=== PATIENT | female | born 1985 ===

== ENCOUNTER 2018-10-21 18:56 | Inpatient (IN) ==
[2018-10-21] MEDS ORDERED: ONDANSETRON 4 MG/2 ML VIAL ONE (21:24)
[2018-10-21] MEDS ORDERED: MORPHINE 4 MG/1 ML VIAL ONE (21:25)
[2018-10-21] MEDS ORDERED: ONDANSETRON 4 MG/2 ML VIAL IV STA (21:25)
[2018-10-21] MEDS ORDERED: MORPHINE 4 MG/1 ML VIAL IV STA (21:26)
[2018-10-21] MEDS ORDERED: GLUCAGON 1 MG VIAL IM PRN (22:32)
[2018-10-21] MEDS ORDERED: DEXTROSE 50% 25 GM/50 ML VIAL IV PRN (22:32)
[2018-10-21] MEDS ORDERED: ENOXAPARIN 40 MG/0.4 ML SYRINGE SUBCUT SCH (23:00)
[2018-10-22] MEDS ORDERED: LORazepam 2 MG/1 ML VIAL IV PRN (00:25)
[2018-10-22] MEDS ORDERED: PNEUMOCOCCAL VACCINE (23 VALENT) 0.5 ML VIAL IM ONE (00:58)
[2018-10-22] MEDS: INSULIN REGULAR 100 UNIT/ML SUBCUT SCH ×5 (01:23→21:06)
[2018-10-22] MEDS ORDERED: VANCOMYCIN INJ 2,000 MG in SODIUM CHLORIDE 0.9% 500 ML IV ONE (02:00)
[2018-10-22] MEDS: MORPHINE 4 MG/1 ML VIAL IV PRN ×4 (02:55→18:06)
[2018-10-22 06:48] LABS: Basophils # 0.1 10*3/uL (0.0-0.2); Basophils % 0.6 % (0.0-0.8); Eosinophils # 0.4 10*3/uL (0.0-0.87); Eosinophils % 2.7 % (0.00-10.9); Hematocrit 39.6 VOL% (35.7-47.0); Hemoglobin 12.7 GM/DL (12.0-16.0); Immature Granulocytes % 0.7 %; Lymphocytes # 3.2 10*3/uL (1.4-4.0); Lymphocytes % 22.8 % (21.3-54.2); Mean Corpuscular HGB Conc 32.1 GM/DL (32-36); Mean Corpuscular Volume 86.7 FL (87-102); Monocytes % 8.7 % (1.7-12.7); Neutrophils % 64.5 % (38.7-73.9); Platelet Count 200 T/CUMM (130-400); Red Blood Count 4.57 MC/CUMM (3.8-5.5); Red Cell Distribution Width 13.7 % (9.3-17.3); White Blood Count 13.9 T/CUMM (4-12)
[2018-10-22 07:09] LABS: Calcium 8.3 MG/DL (8.5-10.1); Osmolality,Calculated 273.1 MOS/KG (273-304)
[2018-10-22] MEDS: FOLIC ACID 1 MG TABLET PO SCH (10:37)
[2018-10-22] MEDS: MULTIVITAMIN (CENTRUM) TABLET PO SCH (10:37)
[2018-10-22] MEDS: chlordiazePOXIDE 10 MG CAPSULE PO SCH ×2 (10:37→22:03)
[2018-10-22] MEDS: THIAMINE 100 MG TABLET PO SCH (10:37)
[2018-10-22] MEDS ORDERED: LIDOCAINE 1% 20 ML VIAL ONE (15:39)
[2018-10-22] MEDS ORDERED: PROPOFOL 200 MG/20 ML VIAL IV ONE (16:28)
[2018-10-22] MEDS ORDERED: ONDANSETRON 4 MG/2 ML VIAL ONE (16:29)
[2018-10-22] MEDS ORDERED: fentaNYL 100 MCG/2 ML VIAL ONE (16:29)
[2018-10-22] MEDS ORDERED: MIDAZOLAM 2 MG/2 ML VIAL ONE (16:29)
[2018-10-22] MEDS ORDERED: SEVOFLURANE 1 UNIT/15 MINUTE INH ONE (16:29)
[2018-10-22] MEDS ORDERED: LACTATED RINGERS 1,000 ML IV ONE (16:29)
[2018-10-22] MEDS ORDERED: POTASSIUM CHLORIDE 20 MEQ TABLET PO PRN (16:36)
[2018-10-22] MEDS: VANCOMYCIN INJ 1,750 MG in SODIUM CHLORIDE 0.9% 500 ML IV SCH (18:07)
[2018-10-22] MEDS: glipiZIDE 5 MG TABLET PO SCH (19:37)
[2018-10-22] MEDS ORDERED: diphenhydrAMINE CAP 25 MG CAPSULE PO PRN (19:39)
[2018-10-23] MEDS: ACETAMINOPHEN 325 MG TABLET PO PRN ×2 (05:13→11:09)
[2018-10-23] MEDS: VANCOMYCIN INJ 1,750 MG in SODIUM CHLORIDE 0.9% 500 ML IV SCH ×2 (05:44→17:15)
[2018-10-23 05:59] LABS: Basophils % 0.4 % (0.0-0.8); Eosinophils # 0.3 10*3/uL (0.0-0.87); Eosinophils % 2.9 % (0.00-10.9); Hematocrit 36.6 VOL% (35.7-47.0); Hemoglobin 11.6 GM/DL (12.0-16.0); Immature Granulocytes % 0.4 %; Immature Granulocytes Absolute 0.04 #; Lymphocytes # 1.7 10*3/uL (1.4-4.0); Lymphocytes % 18.5 % (21.3-54.2); Mean Corpuscular HGB Conc 31.7 GM/DL (32-36); Mean Corpuscular Volume 88.2 FL (87-102); Mean Platelet Volume 10.4 FL (9.6-12.0); Monocytes % 6.9 % (1.7-12.7); Neutrophils % 70.9 % (38.7-73.9); Platelet Count 184 T/CUMM (130-400); Red Blood Count 4.15 MC/CUMM (3.8-5.5); Red Cell Distribution Width 13.5 % (9.3-17.3)
[2018-10-23 06:14] LABS: Calcium 7.8 MG/DL (8.5-10.1); Osmolality,Calculated 279.5 MOS/KG (273-304)
[2018-10-23] MEDS: INSULIN REGULAR 100 UNIT/ML SUBCUT SCH ×4 (06:44→21:18)
[2018-10-23] MEDS: MULTIVITAMIN (CENTRUM) TABLET PO SCH (08:51)
[2018-10-23] MEDS: glipiZIDE 5 MG TABLET PO SCH ×2 (08:51→17:15)
[2018-10-23] MEDS: LISINOPRIL 5 MG TABLET PO SCH (08:52)
[2018-10-23] MEDS: THIAMINE 100 MG TABLET PO SCH (08:52)
[2018-10-23] MEDS: chlordiazePOXIDE 10 MG CAPSULE PO SCH ×2 (08:52→20:45)
[2018-10-23] MEDS: FOLIC ACID 1 MG TABLET PO SCH (08:52)
[2018-10-23] MEDS: SODIUM HYPOCHLORITE 0.25% IRRIG 473 ML BOTTLE TOP SCH (10:40)
[2018-10-23] MEDS: MORPHINE 4 MG/1 ML VIAL IV PRN ×2 (14:24→19:53)
[2018-10-24] MEDS: MORPHINE 4 MG/1 ML VIAL IV PRN ×4 (00:53→22:06)
[2018-10-24] MEDS: VANCOMYCIN INJ 1,750 MG in SODIUM CHLORIDE 0.9% 500 ML IV SCH ×2 (06:31→18:31)
[2018-10-24] MEDS: chlordiazePOXIDE 10 MG CAPSULE PO SCH ×2 (09:56→21:17)
[2018-10-24] MEDS: glipiZIDE 5 MG TABLET PO SCH ×2 (09:56→17:12)
[2018-10-24] MEDS: INSULIN REGULAR 100 UNIT/ML SUBCUT SCH ×4 (09:56→21:17)
[2018-10-24] MEDS: FOLIC ACID 1 MG TABLET PO SCH (09:56)
[2018-10-24] MEDS: MULTIVITAMIN (CENTRUM) TABLET PO SCH (09:56)
[2018-10-24] MEDS: LISINOPRIL 5 MG TABLET PO SCH (09:56)
[2018-10-24] MEDS: THIAMINE 100 MG TABLET PO SCH (09:56)
[2018-10-24] MEDS: SODIUM HYPOCHLORITE 0.25% IRRIG 473 ML BOTTLE TOP SCH (11:15)
[2018-10-24] MEDS: MEROPENEM 500 MG in SODIUM CHLORIDE 0.9% 100 ML IV SCH ×2 (13:45→22:07)
[2018-10-25] MEDS: MORPHINE 4 MG/1 ML VIAL IV PRN ×4 (05:23→19:42)
[2018-10-25] MEDS: MEROPENEM 500 MG in SODIUM CHLORIDE 0.9% 100 ML IV SCH ×3 (05:24→21:43)
[2018-10-25] MEDS: VANCOMYCIN INJ 1,750 MG in SODIUM CHLORIDE 0.9% 500 ML IV SCH ×2 (06:03→18:26)
[2018-10-25] MEDS: FOLIC ACID 1 MG TABLET PO SCH (08:41)
[2018-10-25] MEDS: LISINOPRIL 5 MG TABLET PO SCH (08:41)
[2018-10-25] MEDS: THIAMINE 100 MG TABLET PO SCH (08:41)
[2018-10-25] MEDS: INSULIN REGULAR 100 UNIT/ML SUBCUT SCH ×4 (08:41→20:05)
[2018-10-25] MEDS: chlordiazePOXIDE 10 MG CAPSULE PO SCH ×2 (08:41→20:06)
[2018-10-25] MEDS: MULTIVITAMIN (CENTRUM) TABLET PO SCH (08:41)
[2018-10-25] MEDS: glipiZIDE 5 MG TABLET PO SCH ×2 (08:41→16:50)
[2018-10-25] MEDS: SODIUM HYPOCHLORITE 0.25% IRRIG 473 ML BOTTLE TOP SCH (14:21)
[2018-10-26] MEDS: MORPHINE 4 MG/1 ML VIAL IV PRN ×2 (03:46→09:24)
[2018-10-26] MEDS: MEROPENEM 500 MG in SODIUM CHLORIDE 0.9% 100 ML IV SCH (05:02)
[2018-10-26 05:12] LABS: Basophils % 0.6 % (0.0-0.8); Eosinophils # 0.3 10*3/uL (0.0-0.87); Eosinophils % 4.9 % (0.00-10.9); Hematocrit 37.9 VOL% (35.7-47.0); Hemoglobin 12.2 GM/DL (12.0-16.0); Immature Granulocytes % 0.9 %; Immature Granulocytes Absolute 0.06 #; Lymphocytes % 28.8 % (21.3-54.2); Mean Corpuscular HGB Conc 32.2 GM/DL (32-36); Mean Corpuscular Volume 86.7 FL (87-102); Monocytes % 10.6 % (1.7-12.7); Neutrophils % 54.2 % (38.7-73.9); Platelet Count 205 T/CUMM (130-400); Red Blood Count 4.37 MC/CUMM (3.8-5.5); Red Cell Distribution Width 13.1 % (9.3-17.3)
[2018-10-26 05:28] LABS: Calcium 8.6 MG/DL (8.5-10.1); Osmolality,Calculated 284.7 MOS/KG (273-304)
[2018-10-26] MEDS: VANCOMYCIN INJ 1,750 MG in SODIUM CHLORIDE 0.9% 500 ML IV SCH (05:56)
[2018-10-26 07:29] VITALS: BP 106/84
[2018-10-26] MEDS: SODIUM HYPOCHLORITE 0.25% IRRIG 473 ML BOTTLE TOP SCH (07:50)
[2018-10-26] MEDS: chlordiazePOXIDE 10 MG CAPSULE PO SCH (08:07)
[2018-10-26] MEDS: glipiZIDE 5 MG TABLET PO SCH (08:07)
[2018-10-26] MEDS: LISINOPRIL 5 MG TABLET PO SCH (08:07)
[2018-10-26] MEDS: MULTIVITAMIN (CENTRUM) TABLET PO SCH (08:07)
[2018-10-26] MEDS: FOLIC ACID 1 MG TABLET PO SCH (08:07)
[2018-10-26] MEDS: THIAMINE 100 MG TABLET PO SCH (08:07)
[2018-10-26] MEDS: INSULIN REGULAR 100 UNIT/ML SUBCUT SCH (08:08)
[2018-10-26] MEDS ORDERED: CIPROFLOXACIN 500 MG TABLET PO SCH (09:00)
== END 2018-10-26 10:55 | disposition home or self-care (01) | DRG 256 ==
LOC: EDBD → EDUNIT# → N.ED 18:56 → SUATTDRO 22:33 → N.EDINP 22:33 → N.3E 23:15
PROVIDERS: ADMIT Internal Medicine; ATTEND Internal Medicine